=== PATIENT | male | born 1955 | race Caucasian/White ===

== ENCOUNTER 2017-07-31 16:49 | Observation (INO) | payer MEDICARE ==
[2017-07-31 17:12] VITALS: BP 145/67; PULSE 78; RESP 18; TEMP 98; O2SAT 95
--- NOTE | 2017-07-31 18:56 | PD ---
HPI Chief Complaint: General Weakness Time Seen by Provider: 18:42 Travel History International Travel<30 days: No Contact w/Intl Traveler<30days: No Traveled to known affect area: No History of Present Illness HPI 62-year-old male with PMH of DM, HTN, CAD status post stenting of the LAD, paraplegia, on baby aspirin daily presents to the ED for evaluation of a 3 hour history of right-sided elbow pain and weakness. Also complains of tingling in the left hand. This occurred while the patient was 15 minutes into a session of exercising on his hand bike. He endorses accompanying shortness of breath and states that he "had goose bumps." Symptoms lasted approximately 30 minutes. He denies chest pain, palpitations, abdominal pain, nausea, vomiting. He states that with his previous heart attack he never had any chest pain and only symptoms in his arms. He states that he took a nitroglycerin and had some improvement of his symptoms before coming to the ED. [facility]. He states that it was 18?/90. He was advised to come to the emergency room. States that his symptoms have now resolved. PFSH Past Medical History Medical other: Yes ?: Not Past Surgical History Cardiac Surgery: Yes (HEART ATTACK 11/02/13) Other Surgery: Yes (NECK FUSION 1970S, ) Social History Alcohol Use: No Tobacco Use: No Substance Use: No Allergies-Medications (Allergen,Severity, Reaction): Coded Allergies: Sulfa (Sulfonamide Antibiotics) (Verified Allergy, Intermediate, hives, 07/31/17) Reported Meds & Prescriptions Reported Meds & Active Scripts Active Reported Humulin R Inj (Insulin Human Regular) 1,000 Unit/10 Ml Vial 1-9 Units SQ ACHS Max dose at bedtime( )units; sugars < 70(0)units; sugars 150-199,(1)unit; sugars 200-249(3)units; sugars 250-299,(5)units; sugars 300-349(7)units; sugars more than 349(9)units. Lantus Inj (Insulin Glargine) 1,000 Unit/10 Ml Vial 15 Units SQ HS Oxycodone-Acetaminophen 10-325 mg Tab 1 Tab PO Q6H PRN Naproxen 500 Mg Tab 500 Mg PO ONCE Amlodipine (Amlodipine Besylate) 2.5 Mg Tab 2.5 Mg PO DAILY Nitrostat SL (Nitroglycerin) 0.3 Mg Subl 0.3 Mg SL DIRECTED PRN ONE TABLET UNDER THE TONGUE NEEDED FOR CHEST PAIN, MAY REPEAT EVERY FIVE MINUTES FOR A TOTAL OF 3 DOSES OR CALL 911 IF NO RELIEF Aspirin 81 Mg Chew 81 Mg CHEW DAILY Metformin (Metformin HCl) 1,000 Mg Tab 1,000 Mg PO BIDPC Glipizide 10 Mg Tab 10 Mg PO BIDAC Take 30 minutes before a meal Toprol XL (Metoprolol Succinate) 50 Mg Tab 50 Mg PO DAILY Losartan (Losartan Potassium) 100 Mg Tab 100 Mg PO DAILY Pravastatin 20 Mg Tab 20 Mg PO DAILY Review of Systems Except as stated in HPI: all other systems reviewed are Neg Physical Exam Narrative GENERAL: Well-nourished, well-developed paraplegic white male in no acute distress. SKIN: Focused skin assessment warm/dry. HEAD: Normocephalic. EYES: No scleral icterus. No injection or drainage. NECK: Supple, trachea midline. No JVD or lymphadenopathy. CARDIOVASCULAR: Regular rate and rhythm without murmurs, gallops, or rubs. RESPIRATORY: Breath sounds clear and equal bilaterally. No accessory muscle use. GASTROINTESTINAL: Abdomen soft, non-tender, nondistended. Active bowel sounds. MUSCULOSKELETAL: No cyanosis, or edema. BACK: Nontender without obvious deformity. No CVA tenderness. Data Data Last Documented VS Vital Signs Date Time Temp Pulse Resp B/P (MAP) Pulse Ox O2 Delivery O2 Flow Rate FiO2 07/31/17 20:57 58 17 163/81 (108) 98 Room Air 07/31/17 17:12 98.0 Orders Orders Electrocardiogram (07/31/17 19:25) Ckmb (Isoenzyme) Profile (07/31/17 19:25) Complete Blood Count With Diff (07/31/17 19:25) Comprehensive Metabolic Panel (07/31/17 19:25) Magnesium (Mg) (07/31/17 19:25) Prothrombin Time / Inr (Pt) (07/31/17 19:25) Act Partial Throm Time (Ptt) (07/31/17 19:25) Troponin I (07/31/17 19:25) Ecg Monitoring (07/31/17 19:25) Bilateral Bp Monitoring (07/31/17 19:25) Iv Access Insert/Monitor (07/31/17 19:25) Oximetry (07/31/17 19:25) Chest, Pa & Lat (07/31/17 19:25) CKMB (07/31/17 20:50) CKMB% (07/31/17 20:50) Admit Order (Ed Use Only) (07/31/17 22:02) Place In Observation (07/31/17 22:02) Activity Bed Rest With Brp (07/31/17 22:02) Vital Signs (Adult) Q4H (07/31/17 22:02) Cardiac Rhythm .As Directed (07/31/17 22:) Notify Dr: Other .PRN (07/31/17:) Notify DrLorena Parameters (07/31/17:) Resp Oxygen Nasal Cannula (07/31/17 ) Ckmb (Isoenzyme) Profile (07/31/17 22:02) Ckmb (Isoenzyme) Profile (08/01/17 01:02) Troponin I (07/31/17 22:02) Troponin I (08/01/17 01:02) Electrocardiogram (07/31/17 22:02) Electrocardiogram (08/01/17 01:02) ^ Obtain (07/31/17 22:02) Sodium Chloride 0.9% Flush (Ns Flush) (07/31/17 22:15) Sodium Chloride 0.9% Flush (Ns Flush) (07/31/17 22:15) Transfer Specialist / Telemetry CHRISTO.Q8H (07/31/17 22:02) CKMB (08/01/17 00:00) CKMB% (08/01/17 00:00) CKMB (08/01/17 03:00) CKMB% (08/01/17 03:00) Labs Laboratory Tests Test 07/31/17 20:50 White Blood Count 8.6 TH/MM3 Red Blood Count 4.32 MIL/MM3 Hemoglobin 13.2 GM/DL Hematocrit 37.6 % Mean Corpuscular Volume 87.2 FL Mean Corpuscular Hemoglobin 30.5 PG Mean Corpuscular Hemoglobin Concent 35.0 % Red Cell Distribution Width 14.3 % Platelet Count 352 TH/MM3 Mean Platelet Volume 8.1 FL Neutrophils (%) (Auto) 51.1 % Lymphocytes (%) (Auto) 35.9 % Monocytes (%) (Auto) 8.3 % Eosinophils (%) (Auto) 3.8 % Basophils (%) (Auto) 0.9 % Neutrophils # (Auto) 4.4 TH/MM3 Lymphocytes # (Auto) 3.1 TH/MM3 Monocytes # (Auto) 0.7 TH/MM3 Eosinophils # (Auto) 0.3 TH/MM3 Basophils # (Auto) 0.1 TH/MM3 CBC Comment DIFF FINAL Differential Comment Prothrombin Time 10.3 SEC Prothromb Time International Ratio 1.0 RATIO Activated Partial Thromboplast Time 28.0 SEC Blood Urea Nitrogen 25 MG/DL Creatinine 0.81 MG/DL Random Glucose 139 MG/DL Total Protein 7.6 GM/DL Albumin 4.1 GM/DL Calcium Level 9.1 MG/DL Magnesium Level 1.8 MG/DL Alkaline Phosphatase 99 U/L Aspartate Amino Transf (AST/SGOT) 25 U/L Alanine Aminotransferase (ALT/SGPT) 30 U/L Total Bilirubin 0.3 MG/DL Sodium Level 137 MEQ/L Potassium Level 3.5 MEQ/L Chloride Level 100 MEQ/L Carbon Dioxide Level 25.6 MEQ/L Anion Gap 11 MEQ/L Estimat Glomerular Filtration Rate 96 ML/MIN Total Creatine Kinase 358 U/L Creatine Kinase MB 5.1 NG/ML Creatine Kinase MB % 1.4 % Troponin I LESS THAN 0.02 NG/ML MDM Medical Decision Making Medical Screen Exam Complete: Yes Emergency Medical Condition: Yes Differential Diagnosis Chest pain versus angina versus ACS versus metabolic derangement versus other Narrative Course Patient was initially evaluated in the ambulance [facility]. After I first evaluated him he told me that he was going to leave AMA. However, after some consideration he changed his mind and decided to continue with evaluation and treatment. 62-year-old male with PMH of DM, HTN, CAD status post stenting of the LAD, paraplegia, on baby aspirin daily presents to the ED for evaluation of a 3 hour history of right-sided elbow pain and weakness. Also complains of tingling in the left hand. This occurred while the patient was 15 minutes into a session of exercising on his hand bike. He endorses accompanying shortness of breath and states that he "had goose bumps." Symptoms lasted approximately 30 minutes. He denies chest pain, palpitations, abdominal pain, nausea, vomiting. He states that with his previous heart attack he never had any chest pain and only symptoms in his arms. He states that he took a nitroglycerin and had some improvement of his symptoms before coming to the ED. [facility]. He states that it was 18?/90. He was advised to come to the emergency room. States that his symptoms have now resolved. Heart rate 78, BP 145/67 on presentation. On exam this is a white male in no acute distress. Chest is CTAB. Abdomen soft and nontender. No lower extremity edema. EKG rate 60, sinus rhythm. OH interval 193, QRS 82, QTc 381. Left axis deviation. No acute ST changes. Reviewed by Dr. Jim CXR: No infiltrate seen. Cardiac enzymes negative 1 No concerning abnormalities of the CBC, CMP or coags. I discussed the results of the workup with the patient. I recommended that he stay overnight to rule out ACS in the chest pain center. Patient is agreeable to this plan. Please see [facility] notes for disposition. Referrals: Car Seat Maker Hortencia Chaves Jul 31, 2017 18:56
--- NOTE | 2017-07-31 20:23 | RADRPT ---
EXAM DATE/TIME: 07/31/2017 19:42 [facility] COMPARISON: No previous studies available for comparison. INDICATIONS : Palpitations. Possible high blood pressure. MEDICAL HISTORY : Hypertension. Diabetes mellitus type II. SURGICAL HISTORY : Thoracic fusion. ENCOUNTER: Initial ACUITY: 1 day PAIN SCORE: 0/10 LOCATION: Bilateral chest FINDINGS: The lungs are symmetrically aerated and clear. Posterior and left lateral thoracic spine hardware in place. The heart is upper limits normal size for AP technique. No blunting of the costophrenic ang les. CONCLUSION: No infiltrates seen. Christiano Espinosa MD on July 31, 2017 at 20:21 Board Certified Radiologist. This report was verified electronically.
[2017-07-31 20:56] VITALS: BP 180/88; PULSE 76; RESP 20; O2SAT 97; O2SAT 98
[2017-07-31 20:57] VITALS: BP 163/81; PULSE 58; RESP 17; O2SAT 98
[2017-07-31] MEDS ORDERED: PRAV20TA2 PO (21:10)
[2017-07-31] MEDS ORDERED: OXYC1TAB36 PO (21:10)
[2017-07-31] MEDS ORDERED: LANTUS2P SQ (21:10)
[2017-07-31] MEDS ORDERED: NITR.3 SL (21:10)
[2017-07-31] MEDS ORDERED: METF1000 PO (21:10)
[2017-07-31] MEDS ORDERED: ASPI-516 CHEW (21:10)
[2017-07-31] MEDS ORDERED: LOSA100T PO (21:10)
[2017-07-31] MEDS ORDERED: TOPR50TA PO (21:10)
[2017-07-31] MEDS ORDERED: GLIP10TA6 PO (21:10)
[2017-07-31] MEDS ORDERED: NAPR500T2 PO (21:10)
[2017-07-31] MEDS ORDERED: INSU100V2 SQ (21:10)
[2017-07-31] MEDS ORDERED: AMLO2.5T PO (21:10)
[2017-07-31 21:17] LABS: AUTOMATED NEUTROPHIL # 4.4 TH/MM3 (1.8-7.7); BASOPHIL # 0.1 TH/MM3 (0-0.2); BASOPHIL % 0.9 % (0.0-2.0); EOSINOPHIL # 0.3 TH/MM3 (0-0.4); EOSINOPHIL % 3.8 % (0.0-4.0); HEMATOCRIT 37.6 % (39.0-51.0); HEMOGLOBIN 13.2 GM/DL (13.0-17.0); LYMPH % 35.9 % (9.0-44.0); LYMPHOCYTE # 3.1 TH/MM3 (1.0-4.8); MEAN CELL VOLUME 87.2 FL (80.0-100.0); MEAN CORPUSCULAR HEMOGLOBIN 30.5 PG (27.0-34.0); MEAN PLATELET VOLUME 8.1 FL (7.0-11.0); MONO % 8.3 % (0.0-8.0); MONOCYTE # 0.7 TH/MM3 (0-0.9); NEUT % 51.1 % (16.0-70.0); PLATELET COUNT 352 TH/MM3 (150-450); RED BLOOD COUNT 4.32 MIL/MM3 (4.50-5.90); RED CELL DISTRIBUTION WIDTH 14.3 % (11.6-17.2); WHITE BLOOD COUNT 8.6 TH/MM3 (4.0-11.0)
[2017-07-31 21:31] LABS: PROTHROMBIN TIME - PATIENT 10.3 SEC (9.8-11.6)
[2017-07-31 21:44] LABS: ALBUMIN 4.1 GM/DL (3.4-5.0); ALT (GPT) 30 U/L (12-78); AST (GOT) 25 U/L (15-37); BICARBONATE 25.6 MEQ/L (21.0-32.0); BLOOD UREA NITROGEN 25 MG/DL (7-18); CALCIUM 9.1 MG/DL (8.5-10.1); CHLORIDE 100 MEQ/L (98-107); CREATININE 0.81 MG/DL (0.60-1.30); GLOMERULAR FILTRATION RATE 96 ML/MIN (>89); GLUCOSE,RANDOM 139 MG/DL (74-106); MAGNESIUM 1.8 MG/DL (1.5-2.5); SODIUM (NA) 137 MEQ/L (136-145)
[2017-07-31 21:48] LABS: ALKALINE PHOSPHATASE 99 U/L (45-117); TOTAL BILIRUBIN ADULT 0.3 MG/DL (0.2-1.0); TOTAL PROTEIN 7.6 GM/DL (6.4-8.2); TROPONIN I LESS THAN 0.02 NG/ML (0.02-0.05)
[2017-07-31] MEDS ORDERED: SODIUM CHLORIDE 0.9% FLUSH 10 ML FLUSH IV FLUSH SCH (22:15)
[2017-07-31] MEDS ORDERED: SODIUM CHLORIDE 0.9% FLUSH 10 ML FLUSH IV FLUSH PRN (22:15)
[2017-07-31 22:29] VITALS: BP 157/67; PULSE 70; RESP 18; O2SAT 98
[2017-07-31 23:07] VITALS: BP 148/73; PULSE 70; RESP 16; TEMP 96.3; O2SAT 98
[2017-08-01 00:47] LABS: TROPONIN I LESS THAN 0.02 NG/ML (0.02-0.05)
[2017-08-01 01:03] VITALS: PULSE 57
[2017-08-01 03:46] VITALS: PULSE 61
[2017-08-01 03:53] LABS: TROPONIN I LESS THAN 0.02 NG/ML (0.02-0.05)
[2017-08-01 03:57] VITALS: BP 117/58; PULSE 69; RESP 16; TEMP 97.5; O2SAT 95
[2017-08-01 04:56] VITALS: O2SAT 98
[2017-08-01 07:23] VITALS: BP 139/63; PULSE 65; RESP 18; TEMP 97.9; O2SAT 94
[2017-08-01] MEDS ORDERED: GLUCAGON 1 MG/ML VIAL OTHER PRN (09:30)
[2017-08-01] MEDS ORDERED: glipiZIDE 10 MG TAB PO SCH (09:30)
[2017-08-01] MEDS ORDERED: metFORMIN HCL 500 MG TAB PO SCH (09:30)
[2017-08-01] MEDS ORDERED: METOPROLOL SUCCINATE 50 MG EXTENDED RELEASE TAB PO SCH (09:30)
[2017-08-01] MEDS ORDERED: PRAVASTATIN SOD 20 MG TAB PO SCH (09:30)
[2017-08-01] MEDS ORDERED: ASPIRIN 81 MG CHEW TAB CHEW SCH (09:30)
[2017-08-01] MEDS ORDERED: oxyCODONE/ACETAMINOPHEN 10 MG/325 MG TAB PO PRN (09:30)
[2017-08-01] MEDS ORDERED: amLODIPine BESYLATE 5 MG TAB PO SCH (09:30)
[2017-08-01] MEDS ORDERED: DEXTROSE 50% IN WATER 50 ML VIAL(D50) IV PUSH PRN (09:30)
[2017-08-01] MEDS ORDERED: LOSARTAN 50 MG TAB PO SCH (09:30)
--- NOTE | 2017-08-01 09:33 | HHI.DCPOC ---
Discharge Care Plan Diagnosis: (1) Chest pain (2) CAD (coronary artery disease) (3) H/O heart artery stent (4) Hypertension (5) Hyperlipidemia (6) DM (diabetes mellitus) Goals to Promote Your Health * To prevent worsening of your condition and complications * To maintain your health at the optimal level Directions to Meet Your Goals Take your medications as prescribed Follow your dietary instruction Follow activity as directed Keep your appointments as scheduled Take your immunizations and boosters as scheduled If your symptoms worsen call your PCP, if no PCP go to Urgent Care Center or Emergency Room Smoking is Dangerous to Your Health. Avoid second hand smoke Call the 24-hour hour crisis hotline for domestic abuse at Gerardo Cleary Aug 01, 2017 09:33
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
--- NOTE | 2017-08-01 11:35 | EKG ---
Date Performed: 07/31/2017 Time Performed: 21:20:10 PTAGE: 62 years EKG: Sinus rhythm MARKED LEFT AXIS DEVIATION LOW QRS VOLTAGE IN PRECORDIAL LEADS MODERATE VOLTAGE CRITERIA FOR LVH, CO NSIDER NORMAL VARIANT POSSIBLE ANTERIOR MYOCARDIAL INFARCTION ABNORMAL ECG NO PREVIOUS TRACING DOCTOR: Bruce Magallon Interpretating Date/Time 08/01/2017 11:34:51
[2017-08-01] MEDS ORDERED: INSULIN ASPART SUPPLEMENTAL SCALE SQ SCH (12:00)
[2017-08-01] MEDS ORDERED: INSULIN DETEMIR 100 UNITS/ML VIAL SQ SCH ×2 (21:00)
--- NOTE | 2017-08-03 08:51 | EKG ---
Date Performed: 08/01/2017 Time Performed: 03:19:02 PTAGE: 62 years EKG: Sinus rhythm BORDERLINE LEFT AXIS DEVIATION BORDERLINE ECG INTERPRETATION BASED ON A DEFAULT AGE OF 39 YEARS NO PREVIOUS TRACING DOCTOR: Andi Mtz Interpretating Date/Time 08/03/2017 08:50:30
--- NOTE | 2017-08-03 08:52 | EKG ---
Date Performed: 08/01/2017 Time Performed: 00:26:10 PTAGE: 62 years EKG: SINUS BRADYCARDIA BORDERLINE LEFT AXIS DEVIATION BORDERLINE ECG PREVIOUS TRACING : 07/31/2017 21.20 Since previous tracing, no significant change noted DOCTOR: Andi Mtz Interpretating Date/Time 08/03/2017 08:51:02
== END 2017-08-01 11:02 | disposition home or self-care (01) ==
LOC: NEDAMB 16:49 → NEDA 22:04 → NEPFCDU 22:41
PROVIDERS: ADMIT Internal Medicine Interventional Cardiology; ATTEND Internal Medicine Interventional Cardiology
DX: R07.89 Other chest pain (principal); R06.02 Shortness of breath; R61 Generalized hyperhidrosis; R20.2 Paresthesia of skin; I25.10 Atherosclerotic heart disease of native coronary artery without angina pectoris; I10 Essential (primary) hypertension; R00.1 Bradycardia, unspecified; R94.31 Abnormal electrocardiogram [ECG] [EKG]; I25.2 Old myocardial infarction; E78.5 Hyperlipidemia, unspecified; E11.9 Type 2 diabetes mellitus without complications; G82.20 Paraplegia, unspecified; Z79.899 Other long term (current) drug therapy; Z79.82 Long term (current) use of aspirin; Z79.84 Long term (current) use of oral hypoglycemic drugs; Z95.5 Presence of coronary angioplasty implant and graft
CPT/HCPCS: 71046; 80053; 82550; 82552; 83735; 84484; 85025; 85610; 85730; 93005; 99285; G0378